=== PATIENT | male | born 1960 | race Caucasian/White ===

== ENCOUNTER 2020-03-12 17:43 | Emergency (ER) | payer OTHER ==
[2020-03-12] MEDS ORDERED: DIPHTH,PERTUSS(ACELL),TET 0.5 ML DISP.SYRIN IM ONE ×2 (17:44→17:51)
--- OUTSIDE RECORDS SUMMARY | 2020-03-12 17:57 | XMS ---
:1960 [facility] Providers Name Role Phone Chao Hernandez MD Unavailable Unavailable Mayur Cardona MD Unavailable Unavailable Re-disclosure Warning The records that you are about to access may contain information from federally- assisted alcohol or drug abuse programs. If such information is present, then the following federally mandated warning applies: This information has been disclosed to you from records protected by federal confidentiality rules (42 CFR part 2). The federal rules prohibit you from making any further disclosure of this information unless further disclosure is expressly permitted by the written consent of the person to whom it pertains or as otherwise permitted by 42 CFR part 2. A general authorization for the release of medical or other information is NOT sufficient for this purpose. The Federal rules restrict any use of the information to criminally investigate or prosecute any alcohol or drug abuse patient.The records that you are about to access may contain highly sensitive health information, the redisclosure of which is protected by Article 27-F of the [facility] Public Health law. If you continue you may haveaccess to information: Regarding HIV / AIDS; Provided by facilities licensed or operated by the [facility] Office of Mental Health; or Provided by the [facility] Office for People With Developmental Disabilities. If such information is present, then the following [facility] mandated warning applies: This information has been disclosed to you from confidential records which are protected by state law. State law prohibits you from making any further disclosure of this information without the specific written consent of the person to whom it pertains, or as otherwise permitted by law. Any unauthorized further disclosure in violation of state law may result in a fine or retirement sentence or both. A general authorization for the release of medical or other information is NOT sufficient authorization for further disclosure. 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 Observation Data S ource(s) Description Advance No completed [facility] Advance No completed [facility] Allergies and Adverse Reactions Type Description Substance Reaction Status Data Source(s ) Drug allergy potassium potassium RASH [facility] [place] cl[facility] Drug allergy Penicillins Penicillins [facility] Drug allergy amoxicillin amoxicillin [facility] trihydrate tri[facility]rate [facility] Encounters Encounter Providers Location Date Indications Data Source(s ) Outpatient Attender: Mayur 04/09/2019 ACUTE APPENDICITIS Breanne Cardona MD 09:15:00 AM Hospital EDT - 04/09/2019 07:44:00 AM EDT ACUTE APPENDICITIS Patient discharged. Outpatient Attender: Chao 01/27/2019 07:01:00 APPENDICEA L TUMOR Breanne Hernandez MD AM EDT Hospital APPENDICEAL TUMOR Functional Status Medications Medication Brand Start Product Dose Route Administrative Pharmacy [facility] Indications Reaction Description Data Name Date Form Instructions Instructions Source(s) Acetaminoph Oxycod 04/09/ TABLET 1 ORAL complet [facility] 325 MG / one/Ac 2018 {Caps ed [place] [facility] Oxycodone etamin 11:02: ule} Hospit al Hydrochlori ophen 00 AM de 5 MG EDT Oral Tablet [Percocet] Oxycodone/A cetaminophe n Levothyroxi Levoth TABLET 75 ug ORAL complet [facility] Sodium yroxin ed [place] 0.075 MG e Hospital Oral Tablet Sodium [Synthroid] Levothyroxi TABLET 50 ug ORAL complet [facility] Sodium [facility] Nortriptyli CAPSULE 10 mg ORAL complet [facility] None complet [facility] Insurance Providers Payer name Policy type Policy ID Covered Covered republican's Policy P ashleigh / Coverage republican ID relationship to Diane Inf ormation type diane [place] [id number] 1 [facility] [id number] PT [id number] 1 [employer] PLAN HMO Problems, Conditions, and Diagnoses Code Display Name Description Problem Type Effective Dates Data Source(s) Z88.0 Allergy status to Z88.0 Diagnosis 04/09/2019 Breanne [facility]vajal [facility] penicillin 07:43:00 AM EDT Hospital Z79.899 [facility] [place] [facility] Z79.899 Diagnosis 04/09/2019 [facility] (current) drug 07:43:00 AM EDT Hospi dian therapy Z85.46 Personal history of Z85.46 Diagnosis 04/09/2019 [place] malignant neoplasm 07:43:00 AM EDT H [facility]spital of prostate Z86.010 Personal history of Z86.010 Diagnosis 04/09/2019 [place] colonic polyps 07:43:00 AM EDT Hospi dian E03.9 Hypothyroidism, E03.9 Diagnosis 04/09/2019 [place] [facility] unspecified 07:43:00 AM EDT Hospital D37.3 Neoplasm of 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.3 Diagnosis 04/09/2019 [place] uncertain behavior 07:43:00 AM EDT H [facility]spital of appendix Surgeries/Procedures Procedure Description Date Indications Data Source(s) Oxygen therapy 04/09/2019 [facility] (procedure) 12:00:00 AM EDT Social History Code Duration Value Status Description Data Source(s ) Smoking Unknown if ever completed Unknown if ever [facility] smoked smoked Hospital Vital Signs ID Date Data Source UNK Name Value Range Interpretation Code Description Data Source(s) Diastolic blood 59 mm[Hg] 59 mm[Hg] [facility] Systolic blood 95 mm[Hg] 95 mm[Hg] [facility] Respiratory rate 16 /min 16 /min [facility] Heart rate 53 /min 53 /min [facility] Body temperature 36.25632 [facility] 36.43423 [facility] Body temperature 97.5 [degF] 97.5 [degF] [facility] Body mass index 24.2 kg/m2 24.2 kg/m2 [facility] (BMI) [Ratio] Hospital Body weight 159 [lb_av] 159 [lb_av] [facility]
[2020-03-12 18:01] VITALS: BP 121/84; PULSE 60; TEMP 98.1; BMI 23.8
--- NOTE | 2020-03-12 18:04 | PDOC ---
History of Present Illness - General Chief Complaint: Laceration Stated Complaint: LEFT 2ND FINGER LACERATION Time Seen by Provider: 03/12/20 17:44 History Source: Patient, Spouse Exam Limitations: No Limitations - History of Present Illness Initial Comments: 03/12/20 17:59 CHIEF COMPLAINT: Left second finger laceration 1 hour ago HISTORY OF PRESENT ILLNESS: 59-year-old man, history of thyroid disease, presents after cutting his finger while preparing chicken. The finger was cut on a sharp knife and does not seem to stop bleeding. He denies any other injuries. He denies taking any anticoagulants. He denies taking any antiplatelet agents such as aspirin. REVIEW OF SYSTEMS: No fever or chills No history of bleeding disorders No anticoagulant or antiplatelet agent use Is this a multiple visit Asthma Patient?: No Past History - Medical History Allergies/Adverse Reactions: Allergies Allergy/AdvReac Type Severity Reaction Status Date / Time Penicillins Allergy Verified 03/12/20 17:44 Home Medications: Ambulatory Orders Levothyroxine [Synthroid -] 75 mcg PO DAILY 03/12/20 COPD: No Thyroid Disease: Yes - Surgical History Abdominal Surgery: Yes (HERNIA REPAIR) Appendectomy: Yes - Psycho-Social/Smoking History Smoking History: Never smoked Have you smoked in the past 12 months: No Information on smoking cessation initiated: No - Substance Abuse Hx (Audit-C & DAST Scrn) How often the patient has a drink containing alcohol: 2-3 times / week Score: In Men: 4 or > Positive; In Women: 3 or > Positive: 3 Screen Result (Pos requires Nsg. Audit-10AR): Negative In the last yr the pt used illegal drug/Rx for NonMed reason: No Score: Yes response is considered Positive: 0 Screen Result (Positive result requires Nsg. DAST-10): Negative *Physical Exam - Vital Signs Last Vital Signs Temp Pulse Resp BP Pulse Ox 98.1 F 60 18 121/84 100 03/12/20 17:43 03/12/20 17:43 03/12/20 17:43 03/12/20 17:43 03/12/20 17:43 - Physical Exam 03/12/20 18:01 GENERAL: The patient is awake, alert, and fully oriented, in no acute distress. HEAD: Normal with no signs of trauma. EYES: Pupils equal, round and reactive to light, extraocular movements intact, sclera anicteric, conjunctiva clear. EXTREMITIES: The left index finger has a distal flap laceration, less than 1 cm in length. First, the wound was irrigated with sterile saline solution. After that, with pressure, the bleeding subsided. NEUROLOGICAL: Normal speech, normal gait. PSYCH: Normal mood, normal affect. SKIN: Warm, Dry, normal turgor, no rashes or lesions noted beyond the left second finger laceration. Procedures - Laceration/Wound Repair Left Hand 2nd digit Wound Length: to 2.5 cm Wound Explored: clean Wound's Depth, Shape: superficial, flap Irrigated w/ Saline: Yes Wound Repaired With: Steri-strips Sterile Dressing Applied: Yes Progress: 03/12/20 18:02 Wound irrigated with sterile saline solution Pressure held until hemostasis achieved Steri-Strips applied x3 with good closure Bulky sterile dressing applied Medical Decision Making - Medical Decision Making 03/12/20 18:03 59-year-old man with a history of thyroid disease presents with a small laceration of his left index finger. The laceration initially would not stop bleeding. After irrigation, pressure was applied until hemostasis was achieved. Steri-Strips were applied with a bulky sterile dressing overlying the Steri- Strips. Patient given tetanus prophylaxis given that his last booster is greater than 10 years. Patient advised regarding wound care and follow-up. Discharge - Discharge Information Problems reviewed: Yes Clinical Impression/Diagnosis: Laceration of index finger Qualifiers: Encounter type: initial encounter Damage to nail status: without damage Foreign body presence: without foreign body Laterality: left Qualified Code(s): S61.211A - Laceration without foreign body of left index finger without damage to nail, initial encounter Condition: Stable Disposition: HOME - Admission No - Follow up/Referral Referrals: David Huynh [Primary Care Provider] - - Patient Discharge Instructions Patient Printed Discharge Instructions: DI for Laceration Repair Additional Instructions: You were evaluated today for a finger laceration. The laceration was cleansed with sterile saline solution. Steri-Strips x3 were applied. Tetanus booster was given (Boostrix). You are advised to keep the hand clean and dry for 24 hours. Use a plastic bag when showering for the first 24 hours. This wound is low risk for infection, however, any wound can develop an infection. Watch for any signs of infection, such as redness, swelling, red streaks, or fever. Follow-up if there are any problems with the wound, with your primary care doctor or if your doctor is not available, with the emergency room. - Post Discharge Activity
== END 2020-03-12 18:10 | disposition home or self-care (01) ==
LOC: FER 17:43
PROC: 3E0234Z Introduction of Serum, Toxoid and Vaccine into Muscle, Percutaneous Approach (ICD-10-PCS; principal; 2020-03-12)
DX: S61.211A Laceration without foreign body of left index finger without damage to nail, initial encounter (principal)
CPT/HCPCS: 90715; 99284-25